=== PATIENT | male | born 1965 | race Caucasian/White ===

== ENCOUNTER 2017-02-11 13:11 | Emergency (ER) | payer OTHER ==
[2017-02-11] MEDS ORDERED: Proparacaine 0.5% Ophth Soln 15 ML Bottle EYEBOTH STA (13:37)
--- NOTE | 2017-02-11 14:25 | EDM.PDOC ---
ED HPI GENERAL MEDICAL PROBLEM - General Chief Complaint: Eye Problems Stated Complaint: EYE ISSUES Time Seen by Provider: 02/11/17 13:34 Source of Information: Reports: Patient History Limitations: Reports: No Limitations - History of Present Illness INITIAL COMMENTS - FREE TEXT/NARRATIVE: HISTORY AND PHYSICAL: History of present illness: Patient is a 51-year-old male who presents to the emergency room with complaints of bilateral eye pain. He states that his right eye started to hurt him on Monday and proceeded to see a wet pan operator at [facility] on . At that time both eyes started to bother him. He is given a prescription for gentamicin eyedrops. He reports that he was not given any specific instructions and unsure what he was diagnosed with. He's been using the gentamicin eyedrops 2-3 times daily based on what he felt he should be using them as. States that his eyes will have "green boogers" throughout the day. Denies any recent eye trauma. Denies any headache or change in vision. Review of systems: As per history of present illness and below otherwise all systems reviewed and negative. Past medical history: As per history of present illness and as reviewed below otherwise noncontributory. Surgical history: As per history of present illness and as reviewed below otherwise noncontributory. Social history: No reported history of drug or alcohol abuse. Family history: As per history of present illness and as reviewed below otherwise noncontributory. Physical exam: Gen.: Well-developed and well-nourished 51-year-old male. Appears nontoxic. Alert and oriented. HEENT: Atraumatic, normocephalic, pupils reactive, negative for conjunctival pallor or scleral icterus, scleral injection bilaterally, mucous membranes moist , throat clear, neck supple, nontender, trachea midline. Lungs: Clear to auscultation, breath sounds equal bilaterally, chest nontender. Heart: S1S2, regular, negative for clicks, rubs, or JVD. Abdomen: Soft, nondistended, nontender. Negative for masses or hepatosplenomegaly. Negative for costovertebral tenderness. Pelvis: Stable nontender. Genitourinary: Deferred. Rectal: Deferred. Extremities: Atraumatic, negative for cords or calf pain. Neurovascular unremarkable. Neuro: Awake, alert, oriented. Cranial nerves II through XII unremarkable. Cerebellum unremarkable. Motor and sensory unremarkable throughout. Exam nonfocal. Proparacaine was used to anesthetize the eyes for an eye exam. Fluoroscopy seen by was used with the singh lamp. No foreign bodies noted. Patient tolerated well. All hall of cardinal gaze are intact. See nursing notes for visual acuity. Will change the patient's eyedrops to erythromycin ointment apply 1 cm ribbon in both eyes 4 times daily 10 days. He states he will follow-up with his eye doctor on Monday. A work note has been given to him until he can get cleared through the eye doctor. Patient voices understanding and is agreeable to plan of care. Denies any further questions at this time. Diagnostics: Eye Exam Therapeutics: Proparicaine Impression: 1. Bilateral conjunctivitis Plan: 1. Please stop using the gentamicin eyedrops. Erythromycin has been prescribed for you. Apply 1 cm ribbon in both eyes 4 times daily 10 days. May cause some blurry vision initially please do not rub or white the medication out of the eyes. Perform good hand hygiene and avoid in time and he should with putting the tip of the applicator into the eye. 2. As we discussed please follow-up with your wet pan operator on Monday. A work note has been given to until that time. 3. Return to the ED as needed and as discussed. Definitive disposition and diagnosis as appropriate pending reevaluation and review of above. Duration: Day(s): Location: Reports: Face Bilateral eyes Pain Score (Numeric/FACES): 5 - Related Data Allergies Allergy/AdvReac Type Severity Reaction Status Date / Time No Known Allergies Allergy Verified 02/11/17 13:27 Home Meds: Home Meds . [No Known Home Meds] 02/11/17 [History] Gentamicin [Garamycin 0.3% Ophth Soln] 5 ml EYEBOTH TID 02/11/17 [History] Past Medical History - Past Health History Medical/Surgical History: Denies Medical/Surgical History Social & Family History - Family History Family Medical History: Noncontributory - Tobacco Use Smoking Status *Q: Current Every Day Smoker Years of Tobacco use: 30 Packs/Tins Daily: 1 - Caffeine Use Caffeine Use: Reports: Soda - Recreational Drug Use Recreational Drug Use: No ED ROS GENERAL - Review of Systems Review Of Systems: ROS reveals no pertinent complaints other than HPI. ED EXAM GENERAL W FULL EYE - Physical Exam Exam: See Below (See dictation) Course - Vital Signs Last Recorded V/S: Last Vital Signs Temp 36.7 C 02/11/17 13:30 Pulse 83 02/11/17 13:30 Resp 16 02/11/17 13:30 BP 131/81 02/11/17 13:30 Pulse Ox 93 L 02/11/17 13:30 - Orders/Labs/Meds Meds: Medications Discontinued Medications Generic Name Dose Route Start Last Admin Trade Name Freq PRN Reason Stop Dose Admin Proparacaine HCl 1 ml 02/11/17 13:37 Proparacaine 0.5% Ophth Soln EYEBOTH 02/11/17 13:38 NOW STA Departure - Departure Time of Disposition: 14:35 Disposition: Home, Self-Care 01 Clinical Impression: Conjunctivitis Qualifiers: Conjunctivitis type: unspecified Laterality: bilateral Qualified Code(s): H10.9 - Unspecified conjunctivitis - Discharge Information Referrals: Mohsen Samayoa DO [Primary Care Provider] - Forms: ED Department Discharge Additional Instructions: My general discharge The following information is given to patients seen in the emergency department who are being discharged to home. This information is to outline your options for follow-up care. We provide all patients seen in our emergency department with a follow-up referral. The need for follow-up, as well as the timing and circumstances, are variable depending upon the specifics of your emergency department visit. If you don't have a primary care physician on staff, we will provide you with a referral. We always advise you to contact your personal physician following an emergency department visit to inform them of the circumstance of the visit and for follow-up with them and/or the need for any referrals to a consulting specialist. The emergency department will also refer you to a specialist when appropriate. This referral assures that you have the opportunity for follow-up care with a specialist. All of these measure are taken in an effort to provide you with optimal care, which includes your follow-up. Under all circumstances we always encourage you to contact your private physician who remains a resource for coordinating your care. When calling for follow-up care, please make the office aware that this follow-up is from your recent emergency room visit. If for any reason you are refused follow-up, please contact the [facility] Emergency Department at and asked to speak to the emergency department charge nurse. [address] [address] 1. Please stop using the gentamicin eyedrops. Erythromycin has been prescribed for you. Apply 1 cm ribbon in both eyes 4 times daily 10 days. May cause some blurry vision initially please do not rub or white the medication out of the eyes. Perform good hand hygiene and avoid in time and he should with putting the tip of the applicator into the eye. 2. As we discussed please follow-up with your wet pan operator on Monday. A work note has been given to until that time. 3. Return to the ED as needed and as discussed.
== END 2017-02-11 14:55 | disposition home or self-care (01) ==
LOC: MW.ED 13:11
DX: H10.9 Unspecified conjunctivitis (principal); F17.210 Nicotine dependence, cigarettes, uncomplicated
CPT/HCPCS: 99282; 99283